=== PATIENT | female | born 1950 | race Caucasian/White ===

== ENCOUNTER → 2017-03-23 | Outpatient (CLI) | payer MEDICARE, OTHER ==
--- NOTE | 2017-03-23 14:58 | Diagnostic Imaging Report ---
EXAM: VENTILATION PERFUSION LUNG SCAN INDICATION: SOB COMPARISON: None DISCUSSION: Xenon-133 gas 20 mCi was administered via inhalation. Dynamic images of the lungs in the posterior projection were obtained through single breath and washout phases. Distribution of tracer activity is mildly irregular throughout the lungs. Washout is diffusely delayed with diffuse air trapping in both lungs. Perfusion images of the lungs in multiple projections were obtained following intravenous administration of 6.3 mCi of Tc-99m MAA. Distribution of tracer is irregular throughout the lungs. There are no segmental perfusion defects of any size. The contours of the lungs are well demarcated. The cardiac silhouette is unremarkable. IMPRESSION: 1. Scan findings represent a VERY LOW probability for acute pulmonary embolic disease based on the PIOPED II criteria. 2. Scan findings are compatible with diffuse parenchymal and/or obstructive lung disease. Signed by: Dr. Magda Gutiérrez M.D. on 03/23/2017 2:55 PM
--- NOTE | 2017-03-23 17:47 | Diagnostic Imaging Report ---
PROCEDURE: CT CHEST WITHOUT CONTRAST CT scan of the chest WITHOUT intravenous contrast, using standard protocol. TECHNIQUE: The chest was scanned utilizing a multidetector helical scanner from the apex to the level of the adrenal glands. No IV contrast was administered due to decreased renal function. Coronal and sagittal multiplanar reformations were obtained. COMPARISON: None. INDICATIONS: RIGHT SIDE PAIN, SOB, HX OF PNEUMONIA, PE FINDINGS: Lines/tubes: None. Lungs and Airways: 2.5 x 2.6 x 2.9 cm, somewhat wedge-shaped focal consolidation in the anterolateral lingula against the left epicardial fat pad (series 3, image 66, and sagittal image 93), with mild irregular/spiculated appearance. 6 mm polygonal shaped nodule in the right lower lobe adjacent to the right major fissure (series 3, image 62). 3 mm nodule in the right lower lobe (series 3, image 81). 2 mm groundglass nodule in the left lower lobe (series 3, image 64). No consolidation, or masses. Mild central bronchial wall thickening in the right middle lobe and bilateral lower lobes. Airways are clear, without endobronchial lesions. Pleura: No effusion, or pneumothorax. Heart and mediastinum: Thyroid is unremarkable. Heart size is normal. Trace pericardial effusion. Atherosclerotic calcification of the coronary arteries, aortic valves and thoracic aortic arch. Aorta is non-aneurysmal. Main pulmonary artery is normal in caliber. Lymph nodes: No mediastinal, hilar, or axillary adenopathy. Calcified mediastinal and right hilar lymph nodes are noted. Abdomen: Limited non-enhanced views of the upper abdomen show no abnormality within the visualized liver, spleen. The adrenal glands are unremarkable. Bones: No aggressive lytic lesions. Degenerative disc changes in the thoracic spine. Soft tissues are unremarkable. IMPRESSION: 1. 2.9 cm wedge-shaped focal consolidation in the anterolateral lingula against the left epicardial fat pad likely represents focal atelectasis/confluent scarring. Bronchogenic neoplasm is a less likely consideration, however, may be considered if this is a high risk patient. 2. Indeterminate 2-3 mm pulmonary nodules, as described. 3. Mild central bronchial wall thickening in the right middle lobe and bilateral lower lobes likely reflect sequela of chronic bronchitis. Kei Kaufman M.D. Dictated by: Kei Kaufman M.D. on 03/23/2017 at 17:56 Electronically approved by: Kei Kaufman M.D. on 03/23/2017 at 17:56
== END ==
LOC: NM 11:38
PROVIDERS: ATTEND Internal Medicine Critical Care Medicine
DX: R07.9 Chest pain, unspecified (principal)
CPT/HCPCS: 71250; 78582; A9540; A9558

== ENCOUNTER → 2018-03-19 | Outpatient (CLI) | payer MEDICARE, OTHER ==
--- NOTE | 2018-03-19 13:36 | Diagnostic Imaging Report ---
EXAMINATION: CHEST 2 VIEWS INDICATION: Low back pain. COMPARISON: None FINDINGS: TUBES and LINES: None. LUNGS: Lungs are moderately inflated. Focal opacity projects over the left lower lung with volume loss. The right lung is clear. PLEURA: No pleural effusion or pneumothorax. HEART AND MEDIASTINUM: The cardiomediastinal silhouette is unremarkable. BONES AND SOFT TISSUES: Irregularity of the right lateral eighth and ninth ribs likely represent subacute/healing fractures. Mild degenerative disc changes of the thoracic spine without evidence of vertebral body height loss. UPPER ABDOMEN: No free air under the diaphragm. Surgical clips project over the abdomen. IMPRESSION: Focal opacity projecting over the left lower lung with associated volume loss could represent atelectasis. However underlying lung nodule is not excluded. Chest CT or short interval follow-up chest radiograph is suggested for further evaluation. Likely subacute fractures involving the right lateral eighth and ninth ribs. Mild degenerative disc changes of the thoracic spine without evidence of vertebral body height loss. Signed by: Dr. Kim Smith MD on 03/19/2018 1:32 PM
--- NOTE | 2018-03-19 13:40 | Diagnostic Imaging Report ---
EXAM: Lumbar spine radiographs-5 views INDICATION: Low back pain COMPARISON: None FINDINGS: BONES: There is minimal retrolisthesis of L1 on L2 and L2 on L3. No acute displaced fractures. Vertebral body heights are preserved. DISCS: Mild degenerative disc changes, most pronounced in the lower thoracic spine and L5-S1. Mild facet degenerative changes, most pronounced in the lower lumbar spine. JOINTS: The facet joints and sacroiliac joints are unremarkable. OTHER: Status post cholecystectomy. High density calcification projects over the right upper abdomen/right lower hemithorax and may be in the overlying soft tissues. Atherosclerotic calcifications are noted. IMPRESSION: No acute radiographic abnormality. Mild degenerative disc and facet degenerative changes in the lower lumbar spine. Signed by: Dr. Kim Smith MD on 03/19/2018 1:37 PM
== END ==
LOC: RAD 12:42
PROVIDERS: ATTEND Internal Medicine
DX: M54.5 Low back pain (principal); M51.36 Other intervertebral disc degeneration, lumbar region
CPT/HCPCS: 71046; 72110

== ENCOUNTER → 2018-04-09 | Outpatient (CLI) | payer MEDICARE, OTHER ==
--- NOTE | 2018-04-09 11:15 | Diagnostic Imaging Report ---
EXAMINATION: PA and lateral views of the chest. COMPARISON: September 07, 2018 CLINICAL HISTORY: Pneumonia, follow-up DISCUSSION: Lines/tubes: None. Lungs: Stable opacity adjacent to the left heart border. Could reflect pericardial fat. Right lung is clear. Pleura: No pleural effusion or pneumothorax. Heart and mediastinum: The cardiomediastinal silhouette is normal. Bones and soft tissues: Stable prior right-sided rib fractures. IMPRESSION: Stable opacity adjacent to the left heart border. Signed by: Dr. Canelo Uribe M.D. on 04/09/2018 11:12 AM
== END ==
LOC: RAD 10:22
PROVIDERS: ATTEND Internal Medicine
DX: J15.9 Unspecified bacterial pneumonia (principal)
CPT/HCPCS: 71046

== ENCOUNTER → 2018-12-04 | Outpatient (CLI) | payer MEDICARE, OTHER ==
--- NOTE | 2018-12-04 15:00 | Diagnostic Imaging Report ---
EXAMINATION: CHEST 2 VIEWS INDICATION: Shortness of breath COMPARISON: Multiple prior chest radiographs, most recently of 04/09/2018 FINDINGS: LINES/TUBES:None LUNGS:The lungs are well-inflated. Unchanged left basilar opacity partially silhouetting the left hemidiaphragm and left heart border. Mild right basilar subsegmental atelectasis. PLEURA:No pleural effusion or pneumothorax. MEDIASTINUM:The cardiomediastinal silhouette appears unchanged in size and shape. Atherosclerotic calcifications of the thoracic aorta. BONES/SOFT TISSUES:No acute osseous injury. ABDOMEN:No free air under the diaphragm. Status post cholecystectomy. IMPRESSION: Unchanged left basilar opacity partially silhouetting the left heart border and left hemidiaphragm. This may represent prominent pericardial fat or less likely a pulmonary parenchymal lesion. No new focal consolidation or pulmonary edema. Signed by: Vicki Mendiola MD on 12/04/2018 2:57 PM
== END ==
LOC: RAD 13:35
PROVIDERS: ATTEND Internal Medicine
DX: J44.9 Chronic obstructive pulmonary disease, unspecified (principal); R06.00 Dyspnea, unspecified
CPT/HCPCS: 71046

== ENCOUNTER → 2019-01-09 | Outpatient (CLI) | payer MEDICARE, OTHER | LOC: RAD 12:32 | PROVIDERS: ATTEND Internal Medicine | DX: I50.32 Chronic diastolic (congestive) heart failure (principal) | CPT/HCPCS: 93306 ==

== ENCOUNTER → 2019-07-23 | Outpatient (CLI) | payer MEDICARE, OTHER ==
--- NOTE | 2019-07-23 14:19 | Diagnostic Imaging Report ---
EXAM: CT Chest WITHOUT intravenous contrast 07/23/2019 10:30 AM INDICATION: Pulmonary nodule COMPARISON: Chest radiograph 12/04/2018 TECHNIQUE: Chest was scanned utilizing a multidetector helical scanner from the lung apex through the level of the adrenal glands without administration of IV contrast. Coronal and sagittal reformations were obtained. Routine protocol was performed. IV CONTRAST: None RADIATION DOSE: Total DLP: 495 mGy*cm. Dose modulation, iterative reconstruction, and/or weight based adjustment of the mA/kV was utilized to reduce the radiation dose to as low as reasonably achievable. COMPLICATIONS: None FINDINGS: LINES/ TUBES: None. LUNGS AND AIRWAYS: The central airways are patent. There is a 3.6 x 2.9 cm mass at the lingula which corresponds with the opacity seen on prior chest radiographs. PLEURA: The pleural spaces are clear. HEART AND MEDIASTINUM: Partially visualized thyroid gland appears unremarkable. No supraclavicular, axillary, mediastinal, or hilar lymphadenopathy. The heart is not enlarged. No pericardial effusion.. Atherosclerotic calcifications involve the thoracic aorta and coronary arteries. UPPER ABDOMEN: Status post cholecystectomy. No acute findings. BONES: No acute osseous injury. No suspicious lytic or blastic lesions. Old healed right lateral rib fractures. SOFT TISSUES: Unremarkable. IMPRESSION: 3.6 x 2.9 cm lingular mass corresponds with the opacity seen on prior chest radiographs. Further evaluation is recommended with PET/CT and/or percutaneous tissue sampling. Signed by: Vicki Mendiola MD on 07/23/2019 2:15 PM
== END ==
LOC: CT 09:56
PROVIDERS: ATTEND Internal Medicine Critical Care Medicine
DX: R91.8 Other nonspecific abnormal finding of lung field (principal)
CPT/HCPCS: 71250

== ENCOUNTER → 2019-08-14 | Outpatient (CLI) | payer MEDICARE, OTHER ==
[~2019-08-14] MED LIST: FENTANYL CITRATE/PF 100MCG/2 ML INJ ONE; MIDAZOLAM HCL 2 MG/2 ML VIAL ONE
[2019-08-14 08:30] LABS: HEMOGLOBIN 11.1 g/dL (12.0-16.0)
[2019-08-14 08:35] LABS: INR 1.06; PROTHROMBIN TIME 14.5 seconds (11.9-14.5)
[2019-08-14 08:36] LABS: PARTIAL THROMBOPLASTIN TIME 28.8 seconds (23.8-35.5)
--- NOTE | 2019-08-14 10:28 | Diagnostic Imaging Report ---
PROCEDURE: CT-guided lung biopsy Procedural Personnel Attending physician(s): Vicki Mendiola MD Fellow physician(s): None Resident physician(s): None Advanced practice provider(s): None Pre-procedure diagnosis: Lingular lung mass Post-procedure diagnosis: Same Indication: Histopathologic diagnosis Previous biopsy of same target (QCDR): No Additional clinical history: None Complications: No immediate complications. IMPRESSION: CT-guided biopsy of lingular mass. Plan: Specimen(s) sent for evaluation. PROCEDURE SUMMARY: - Percutaneous CT-guided lingular mass lung biopsy - Additional procedure(s): None PROCEDURE DETAILS: Pre-procedure Reference imaging for biopsy target: Chest CT 07/23/2019 Consent: Informed consent for the procedure including risks, benefits and alternatives was obtained and time-out was performed prior to the procedure. Preparation: The site was prepared and draped using maximal sterile barrier technique including cutaneous antisepsis. Anesthesia/sedation Level of anesthesia/sedation: Moderate sedation (conscious sedation) 1mg Versed, 50mcg Fentanyl Anesthesia/sedation administered by: Independent trained observer under attending supervision with continuous monitoring of the patient?s level of consciousness and physiologic status Total intra-service sedation time (minutes): 30 Imaging prior to biopsy The patient was positioned . Initial imaging was performed using . Biopsy target: - Maximal diameter (cm): 3.5 - Location: Lingula Other findings: None Biopsy Local anesthesia was administered. Under CT guidance, the biopsy needle was advanced to the target and biopsy was performed. Coaxial needle: 17 gauge Core needle biopsy device: [employer] Core needle size: 18 gauge Number of core specimens: 3 Fine needle aspiration device: Chiba Fine needle size: 22g Number of FNA specimens: 3 On-site biopsy touch preparation: Yes Additional sampling recommendations: None Needle removal The biopsy needle was removed and a sterile dressing was applied. Tract embolization: None Imaging following biopsy Immediate post-biopsy imaging was performed using noncontrast CT. Post-biopsy imaging findings: Small postprocedural pneumomediastinum. Patient remains asymptomatic. Contrast Contrast agent: None Contrast volume (mL): [address] dose length product (mGy-cm): 2224 Additional Details Additional description of procedure: None Equipment details: None Specimens removed: Biopsy samples as detailed above Estimated blood loss (mL): Less than 10 Standardized report: [id number] Attestation Signer name: Vicki Mendiola MD I attest that I was present for the entire procedure. I reviewed the stored images and agree with the report as written. Signed by: Vicki Mendiola MD on 08/14/2019 10:24 AM
--- NOTE | 2019-08-14 11:28 | Diagnostic Imaging Report ---
EXAMINATION: CHEST SINGLE (PORTABLE) INDICATION: Postprocedural COMPARISON: Chest radiograph 12/04/2018 FINDINGS: LINES/TUBES:None LUNGS:The lungs are well-inflated. Lingular opacity corresponds with known lingular lesion and post biopsy changes. PLEURA:No pleural effusion or pneumothorax. MEDIASTINUM:The cardiomediastinal silhouette appears normal in size and shape. BONES/SOFT TISSUES:No acute osseous injury. ABDOMEN:No free air under the diaphragm. IMPRESSION: No pneumothorax status post lingular lung biopsy. Signed by: Vicki Mendiola MD on 08/14/2019 11:24 AM
== END ==
LOC: CT 07:55
PROVIDERS: ATTEND Internal Medicine Critical Care Medicine
DX: R91.8 Other nonspecific abnormal finding of lung field (principal); Z11.59 Encounter for screening for other viral diseases
CPT/HCPCS: 10009; 32405; 36415; 71045; 85014; 85049; 85610; 85730; 87635; 88112; 88305; 99152; J2250; J3010

== ENCOUNTER 2020-05-25 12:05 | Inpatient (IN) | payer MEDICARE, OTHER ==
[~2020-05-25] VITALS: Ht 167.6 cm; Wt 69.9 kg
[~2020-05-25 12:05] MED LIST changes: +ALLOPURINOL100 MG PO; +ATORVASTATIN CA10 MG PO; +CALCITRIOL0.25 MCG PO; +DIAZEPAM10 MG PO; -FENTANYL CITRATE/PF 100MCG/2 ML INJ ONE; +FUROSEMIDE40 MG PO; +LEVOTHYROXINE50 MCG PO; +LOSARTAN POTASS25 MG PO; -MIDAZOLAM HCL 2 MG/2 ML VIAL ONE; +NORCO 7.5-3251 EACH PO; +SERTRALINE HCL50 MG PO; +VITAMIN B-121000 MCG PO
[2020-05-25 14:45] LABS: BASOPHILS # (AUTO) 0.1 (0.0-0.1); EOSINOPHILS # (AUTO) 0.1 (0.0-0.4); EOSINOPHILS % 1.1 % (0.0-6.0); HEMOGLOBIN 11.2 g/dL (12.0-16.0); LYMPHOCYTES # (AUTO) 1.9 (1.0-3.2); LYMPHOCYTES % 23.4 % (18.0-39.1); MEAN CORPUSCULAR HEMOGLOBIN 30.1 pg (28-32); MEAN CORPUSCULAR VOLUME 94.1 fL (81-99); MONOCYTES # (AUTO) 0.5 (0.2-0.8); MONOCYTES % 6.1 % (4.4-11.3); NEUTROPHILS # (AUTO) 5.3 (2.1-6.9); NEUTROPHILS % 67.8 % (38.7-80.0); PLATELET COUNT 210 x10e3/uL (140-360); RED BLOOD COUNT 3.72 x10e6/uL (3.6-5.1); RED CELL DISTRIBUTION WIDTH 15.9 % (11.7-14.4)
[2020-05-25 14:58] LABS: ALBUMIN 3.4 g/dL (3.5-5.0); ALBUMIN/GLOBULIN RATIO 0.8 (0.8-2.0); ANION GAP 18.4 mmol/L (8-16); CALCIUM 10.3 mg/dL (8.4-10.2); CREATININE, SERUM 3.46 mg/dL (0.57-1.11); POTASSIUM 3.4 mmol/L (3.5-5.1)
[2020-05-25] MEDS ORDERED: NON-FORMULARY MEDICATION (Diazepam 10 MG) PO PRN (15:15)
[2020-05-25] MEDS ORDERED: HYDROCODONE/APAP 7.5MG-325MG 1 EA TAB PO PRN (15:15)
[2020-05-25] MEDS ORDERED: DIAZEPAM 5 MG TAB PO PRN (15:45)
[2020-05-25 15:48] LABS: CLARITY,URINE SL CLOUDY (CLEAR); COLOR,URINE AMBER (YELLOW); KETONES,URINE NEGATIVE (NEGATIVE); LEUKOCYTE ESTERASE ,URINE NEGATIVE (NEGATIVE); NITRITE,URINE NEGATIVE (NEGATIVE); PROTEIN,URINE DIPSTICK 1+ (NEGATIVE); URINE UROBILINOGEN 0.2 mg/dL (0.2 - 1)
[2020-05-25 16:00] LABS: BACTERIA,URINE MODERATE /HPF; EPITHELIAL CELLS,URINE FEW /LPF; RENAL EPITHELIAL CELLS,URINE FEW
[2020-05-25] MEDS ORDERED: CEFTRIAXONE SOD 1 GM/50 ML BAG IV SCH (16:30)
[2020-05-25] MEDS ORDERED: POTASSIUM CHLORIDE 10MEQ EA PO ONE ×2 (16:30→18:30)
[2020-05-25] MEDS ORDERED: SODIUM CHLORIDE 0.9% 250ML 250 ML ONE (16:46)
[2020-05-25] MEDS ORDERED: CEFTRIAXONE SOD 1 GM in SODIUM CHLORIDE 0.9% 50ML 50 ML IV SCH (17:00)
[2020-05-25] MEDS: SODIUM CHLORIDE 0.9% 1000ML 1,000 ML IV SCH (17:18)
[2020-05-25] MEDS ORDERED: IBUPROFEN 600 MG TAB PO NR (18:45)
[2020-05-25 19:40] VITALS: BP 92/64
[2020-05-25 20:30] VITALS: BP 92/64
[2020-05-25 21:00] VITALS: BP 92/64
[2020-05-25] MEDS: ATORVASTATIN 10 MG TAB PO SCH (22:15)
[2020-05-25] MEDS: ALLOPURINOL 100 MG TAB PO SCH (22:15)
[2020-05-26] VITALS (8 sets, daily range): BP systolic 85–102; BP diastolic 53–66
[2020-05-26] MEDS: SODIUM CHLORIDE 0.9% 1000ML 1,000 ML IV SCH ×4 (01:02→20:45)
[2020-05-26] MEDS ORDERED: METOPROLOL SUCC25 MG PO (01:22)
[2020-05-26] MEDS ORDERED: QUESTRAN PACKET4 GM PO (01:22)
[2020-05-26 05:10] LABS: BASOPHILS % 0.8 % (0.0-1.0); EOSINOPHILS # (AUTO) 0.1 (0.0-0.4); EOSINOPHILS % 1.5 % (0.0-6.0); HEMATOCRIT 28.5 % (34.2-44.1); HEMOGLOBIN 9.1 g/dL (12.0-16.0); LYMPHOCYTES # (AUTO) 1.4 (1.0-3.2); LYMPHOCYTES % 26.2 % (18.0-39.1); MEAN CORPUSCULAR HEMOGLOBIN 30.6 pg (28-32); MEAN CORPUSCULAR HGB CONC 31.9 g/dL (31-35); MONOCYTES # (AUTO) 0.4 (0.2-0.8); MONOCYTES % 7.3 % (4.4-11.3); NEUTROPHILS # (AUTO) 3.3 (2.1-6.9); NEUTROPHILS % 63.8 % (38.7-80.0); PLATELET COUNT 151 x10e3/uL (140-360); RED BLOOD COUNT 2.97 x10e6/uL (3.6-5.1); RED CELL DISTRIBUTION WIDTH 15.8 % (11.7-14.4)
[2020-05-26 05:29] LABS: ALBUMIN 2.6 g/dL (3.5-5.0); ALBUMIN/GLOBULIN RATIO 0.8 (0.8-2.0); CALCIUM 8.7 mg/dL (8.4-10.2); CREATININE, SERUM 2.77 mg/dL (0.57-1.11)
[2020-05-26] MEDS: LEVOTHYROXINE SODIUM 50 MCG TAB PO SCH (06:03)
[2020-05-26] MEDS ORDERED: SODIUM CHLORIDE 0.9% 1000ML 250 ML IV SCH (07:00)
[2020-05-26] MEDS ORDERED: SODIUM CHLORIDE 0.9% 250ML 250 ML IV ONE (07:20)
[2020-05-26 07:32] LABS: CHOL/HDL RATIO 3.1 (3.0-3.6)
[2020-05-26] MEDS: CEFTRIAXONE SOD 1 GM in SODIUM CHLORIDE 0.9% 50ML 50 ML IV SCH ×2 (07:38→20:10)
[2020-05-26] MEDS: CALCITRIOL 0.25 MCG CAP PO SCH (08:59)
[2020-05-26] MEDS: CYANOCOBALAMIN 1,000 MCG TAB PO SCH (08:59)
[2020-05-26] MEDS: SERTRALINE HCL 50 MG TAB PO SCH (08:59)
[2020-05-26] MEDS ORDERED: FUROSEMIDE 20 MG TAB PO SCH (09:00)
[2020-05-26] MEDS ORDERED: LOSARTAN POTASSIUM 25 MG TAB PO SCH (09:00)
[2020-05-26] MEDS ORDERED: SODIUM CHLORIDE 0.9% 500ML 500 ML IV ONE (18:45)
[2020-05-26] MEDS: ALLOPURINOL 100 MG TAB PO SCH (20:10)
[2020-05-26] MEDS: ATORVASTATIN 10 MG TAB PO SCH (20:10)
[2020-05-27] VITALS (9 sets, daily range): BP systolic 95–116; BP diastolic 60–90
[2020-05-27 05:06] LABS: BASOPHILS % 0.6 % (0.0-1.0); EOSINOPHILS # (AUTO) 0.1 (0.0-0.4); EOSINOPHILS % 1.9 % (0.0-6.0); HEMATOCRIT 27.5 % (34.2-44.1); HEMOGLOBIN 8.6 g/dL (12.0-16.0); LYMPHOCYTES # (AUTO) 1.3 (1.0-3.2); LYMPHOCYTES % 27.2 % (18.0-39.1); MEAN CORPUSCULAR HEMOGLOBIN 30.2 pg (28-32); MEAN CORPUSCULAR HGB CONC 31.3 g/dL (31-35); MEAN CORPUSCULAR VOLUME 96.5 fL (81-99); MONOCYTES # (AUTO) 0.3 (0.2-0.8); MONOCYTES % 6.7 % (4.4-11.3); NEUTROPHILS # (AUTO) 2.9 (2.1-6.9); NEUTROPHILS % 63.2 % (38.7-80.0); PLATELET COUNT 141 x10e3/uL (140-360); RED BLOOD COUNT 2.85 x10e6/uL (3.6-5.1); RED CELL DISTRIBUTION WIDTH 15.9 % (11.7-14.4)
[2020-05-27 05:32] LABS: CREATININE, SERUM 2.23 mg/dL (0.57-1.11)
[2020-05-27] MEDS: LEVOTHYROXINE SODIUM 50 MCG TAB PO SCH (06:30)
[2020-05-27 08:12] LABS: FERRITIN 514.14 ng/mL (4.63-204.00)
[2020-05-27] MEDS: CYANOCOBALAMIN 1,000 MCG TAB PO SCH (09:00)
[2020-05-27] MEDS: SERTRALINE HCL 50 MG TAB PO SCH (09:00)
[2020-05-27] MEDS ORDERED: SODIUM BICARBONATE 650 MG TAB PO SCH (09:00)
[2020-05-27] MEDS: CALCITRIOL 0.25 MCG CAP PO SCH (09:00)
[2020-05-27] MEDS: SODIUM CHLORIDE 0.9% 1000ML 1,000 ML IV SCH ×2 (09:00→17:49)
[2020-05-27] MEDS: CEFTRIAXONE SOD 1 GM in SODIUM CHLORIDE 0.9% 50ML 50 ML IV SCH ×2 (09:00→20:45)
[2020-05-27] MEDS: ACETYLCYSTEINE 200 MG/ML 4ML VIAL PO SCH ×2 (09:22→21:31)
[2020-05-27] MEDS: SODIUM BICARBONATE 650 MG TAB PO SCH (17:46)
[2020-05-27] MEDS: ATORVASTATIN 10 MG TAB PO SCH (21:32)
[2020-05-27] MEDS: ALLOPURINOL 100 MG TAB PO SCH (21:32)
[2020-05-28] VITALS (12 sets, daily range): BP systolic 102–117; BP diastolic 65–76
[2020-05-28] MEDS: SODIUM CHLORIDE 0.9% 1000ML 1,000 ML IV SCH ×3 (00:13→23:00)
[2020-05-28] MEDS: LEVOTHYROXINE SODIUM 50 MCG TAB PO SCH (02:02)
[2020-05-28 05:58] LABS: BASOPHILS % 0.8 % (0.0-1.0); EOSINOPHILS # (AUTO) 0.1 (0.0-0.4); EOSINOPHILS % 2.5 % (0.0-6.0); HEMATOCRIT 31.4 % (34.2-44.1); HEMOGLOBIN 9.8 g/dL (12.0-16.0); LYMPHOCYTES # (AUTO) 1.2 (1.0-3.2); LYMPHOCYTES % 24.3 % (18.0-39.1); MEAN CORPUSCULAR HGB CONC 31.2 g/dL (31-35); MEAN CORPUSCULAR VOLUME 99.4 fL (81-99); MONOCYTES # (AUTO) 0.3 (0.2-0.8); MONOCYTES % 5.4 % (4.4-11.3); NEUTROPHILS # (AUTO) 3.2 (2.1-6.9); NEUTROPHILS % 66.6 % (38.7-80.0); PLATELET COUNT 146 x10e3/uL (140-360); RED BLOOD COUNT 3.16 x10e6/uL (3.6-5.1); RED CELL DISTRIBUTION WIDTH 16.2 % (11.7-14.4)
[2020-05-28 06:07] LABS: ANION GAP 14.8 mmol/L (8-16); CALCIUM 8.2 mg/dL (8.4-10.2); CREATININE, SERUM 1.92 mg/dL (0.57-1.11); POTASSIUM 3.8 mmol/L (3.5-5.1)
[2020-05-28] MEDS ORDERED: VERAPAMIL HCL 2.5 MG/ML 2 ML VIAL ONE (07:33)
[2020-05-28] MEDS ORDERED: MIDAZOLAM HCL 2 MG/2 ML VIAL ONE (07:33)
[2020-05-28] MEDS ORDERED: HEPARIN SOD (PORCINE) 1000 UNIT/ML 30ML ONE (07:33)
[2020-05-28] MEDS ORDERED: HEPARIN SOD/SOD CHLORIDE 2,000 ML ONE (07:34)
[2020-05-28] MEDS ORDERED: LIDOCAINE HCL 2% LOCAL 20 ML VIAL ONE (07:34)
[2020-05-28] MEDS ORDERED: FENTANYL CITRATE/PF 100MCG/2 ML INJ ONE (07:34)
[2020-05-28] MEDS ORDERED: IOPAMIDOL 370 MG/ML 200 ML INFUS..BTL INJ ONE (07:34)
[2020-05-28] MEDS ORDERED: SODIUM CHLORIDE 0.9% 1000ML 1,000 ML ONE (07:35)
[2020-05-28] MEDS ORDERED: NITROGLYCERIN/D5W 200 MCG/ML 250 ML ONE (07:35)
[2020-05-28] MEDS: ACETYLCYSTEINE 200 MG/ML 4ML VIAL PO SCH ×2 (09:00→20:26)
[2020-05-28] MEDS: CEFTRIAXONE SOD 1 GM in SODIUM CHLORIDE 0.9% 50ML 50 ML IV SCH ×2 (10:00→20:25)
[2020-05-28] MEDS: SODIUM BICARBONATE 650 MG TAB PO SCH ×2 (10:06→17:00)
[2020-05-28] MEDS: CYANOCOBALAMIN 1,000 MCG TAB PO SCH (10:07)
[2020-05-28] MEDS: SERTRALINE HCL 50 MG TAB PO SCH (10:07)
[2020-05-28] MEDS: CALCITRIOL 0.25 MCG CAP PO SCH (10:07)
[2020-05-28] MEDS: ATORVASTATIN 10 MG TAB PO SCH (20:27)
[2020-05-28] MEDS: ALLOPURINOL 100 MG TAB PO SCH (20:27)
[2020-05-29 00:15] VITALS: BP 103/69
[2020-05-29] MEDS: SODIUM CHLORIDE 0.9% 1000ML 1,000 ML IV SCH (03:00)
[2020-05-29 04:00] VITALS: BP 94/66
[2020-05-29] MEDS: LEVOTHYROXINE SODIUM 50 MCG TAB PO SCH (05:45)
[2020-05-29 07:31] VITALS: BP 94/66
[2020-05-29 07:35] LABS: BASOPHILS % 0.9 % (0.0-1.0); EOSINOPHILS # (AUTO) 0.1 (0.0-0.4); EOSINOPHILS % 2.3 % (0.0-6.0); HEMOGLOBIN 9.5 g/dL (12.0-16.0); LYMPHOCYTES # (AUTO) 1.2 (1.0-3.2); LYMPHOCYTES % 24.7 % (18.0-39.1); MEAN CORPUSCULAR HEMOGLOBIN 30.3 pg (28-32); MEAN CORPUSCULAR HGB CONC 30.6 g/dL (31-35); MEAN CORPUSCULAR VOLUME 98.7 fL (81-99); MONOCYTES # (AUTO) 0.3 (0.2-0.8); MONOCYTES % 6.2 % (4.4-11.3); NEUTROPHILS # (AUTO) 3.1 (2.1-6.9); NEUTROPHILS % 65.5 % (38.7-80.0); PLATELET COUNT 131 x10e3/uL (140-360); RED BLOOD COUNT 3.14 x10e6/uL (3.6-5.1); RED CELL DISTRIBUTION WIDTH 16.6 % (11.7-14.4)
[2020-05-29 07:56] LABS: ALBUMIN 2.4 g/dL (3.5-5.0); ALBUMIN/GLOBULIN RATIO 0.8 (0.8-2.0); ANION GAP 14.9 mmol/L (8-16); CALCIUM 7.5 mg/dL (8.4-10.2); CREATININE, SERUM 1.59 mg/dL (0.57-1.11); POTASSIUM 3.9 mmol/L (3.5-5.1)
[2020-05-29] MEDS: CYANOCOBALAMIN 1,000 MCG TAB PO SCH (10:50)
[2020-05-29] MEDS: SERTRALINE HCL 50 MG TAB PO SCH (10:50)
[2020-05-29] MEDS: SODIUM BICARBONATE 650 MG TAB PO SCH (10:50)
[2020-05-29] MEDS: CEFTRIAXONE SOD 1 GM in SODIUM CHLORIDE 0.9% 50ML 50 ML IV SCH (10:50)
[2020-05-29] MEDS: CALCITRIOL 0.25 MCG CAP PO SCH (10:50)
[2020-05-29 12:30] VITALS: BP 104/72
== END 2020-05-29 14:23 | disposition home or self-care (01) | DRG 871 ==
LOC: ER 13:26 → ERHOLD 15:12 → MED/SURG 20:30
PROVIDERS: ADMIT Internal Medicine; ATTEND Internal Medicine
PROC: 4A023N7 Measurement of Cardiac Sampling and Pressure, Left Heart, Percutaneous Approach (ICD-10-PCS; principal; 2020-05-28)
PROC: B2111ZZ Fluoroscopy of Multiple Coronary Arteries using Low Osmolar Contrast (ICD-10-PCS; 2020-05-28)
DX: A41.9 Sepsis, unspecified organism (principal); N17.0 Acute kidney failure with tubular necrosis; I13.0 Hypertensive heart and chronic kidney disease with heart failure and stage 1 through stage 4 chronic kidney disease, or unspecified chronic kidney disease; I50.32 Chronic diastolic (congestive) heart failure; E87.2 Acidosis; N18.4 Chronic kidney disease, stage 4 (severe); N39.0 Urinary tract infection, site not specified; J44.9 Chronic obstructive pulmonary disease, unspecified; Z87.891 Personal history of nicotine dependence; E66.9 Obesity, unspecified; I25.9 Chronic ischemic heart disease, unspecified; E03.9 Hypothyroidism, unspecified; E83.51 Hypocalcemia; N28.1 Cyst of kidney, acquired; E83.52 Hypercalcemia; I25.10 Atherosclerotic heart disease of native coronary artery without angina pectoris; I48.0 Paroxysmal atrial fibrillation; Z79.01 Long term (current) use of anticoagulants; R33.9 Retention of urine, unspecified; D63.8 Anemia in other chronic diseases classified elsewhere; Z20.822 Contact with and (suspected) exposure to COVID-19
CPT/HCPCS: 36415; 71045; 80048; 80053; 80061; 81001; 82607; 82728; 82948; 83540; 83605; 83880; 84443; 84466; 84484; 85025; 87040; 87086; 93005; 93306; 93458; 97139; 99152; 99285; C1887; J0696; J1644; J2001; J2250; J3010; J7030; J7050; Q9967; U0002

== ENCOUNTER 2022-12-26 12:23 | Observation (INO) | payer MEDICARE, OTHER ==
[2022-12-22 11:02] LABS: COVID 19 ANTIGEN NOT DETECTED (NEGATIVE)
[2022-12-22 11:14] LABS: BASOPHILS % 0.4 % (0.0-1.0); EOSINOPHILS # (AUTO) 0.2 (0.0-0.4); EOSINOPHILS % 2.4 % (0.0-6.0); HEMATOCRIT 34.6 % (34.2-44.1); LYMPHOCYTES # (AUTO) 1.3 (1.0-3.2); LYMPHOCYTES % 18.7 % (18.0-39.1); MEAN CORPUSCULAR HEMOGLOBIN 30.4 pg (28-32); MEAN CORPUSCULAR HGB CONC 31.8 g/dL (31-35); MEAN CORPUSCULAR VOLUME 95.6 fL (81-99); MONOCYTES # (AUTO) 0.2 (0.2-0.8); MONOCYTES % 2.7 % (4.4-11.3); NEUTROPHILS # (AUTO) 5.3 (2.1-6.9); NEUTROPHILS % 75.2 % (38.7-80.0); PLATELET COUNT 105 x10e3/uL (140-360); RED BLOOD COUNT 3.62 x10e6/uL (3.6-5.1); RED CELL DISTRIBUTION WIDTH 14.9 % (11.7-14.4); WHITE BLOOD COUNT 7.06 x10e3/uL (4.8-10.8)
[2022-12-22 11:16] LABS: ALANINE AMINOTRANSFERASE 13 IU/L (0-55); ALBUMIN 3.2 g/dL (3.5-5.0); ALBUMIN/GLOBULIN RATIO 0.8 (0.8-2.0); ALKALINE PHOSPHATASE 143 IU/L (40-150); ANION GAP 15.2 mmol/L (8-16); BILIRUBIN,TOTAL 0.4 mg/dL (0.2-1.2); BLOOD UREA NITROGEN 29 mg/dL (7-26); BUN/CREATININE RATIO 11 (6-25); CALCIUM 9.4 mg/dL (8.4-10.2); CARBON DIOXIDE 25 mmol/L (22-29); CHLORIDE 104 mmol/L (98-107); CHOLESTEROL 126 MD/DL (0-199); CREATININE, SERUM 2.61 mg/dL (0.57-1.11); EST GLOMERULAR FILTRATION RATE 19 ML/MIN (>=60); GLUCOSE 215 mg/dL (74-118); HDL CHOLESTEROL 42 MG/DL (40-60); LDL CHOLESTEROL 57 MG/DL (60-130); POTASSIUM 4.2 mmol/L (3.5-5.1); SODIUM 140 mmol/L (136-145); TOTAL PROTEIN 7.4 g/dL (6.5-8.1); TRIGLYCERIDES 135 MG/DL (0-149)
[2022-12-26] VITALS (19 sets, daily range): BP systolic 105–144; BP diastolic 39–94; PULSE 52–73; RESP 12–20; TEMP 97.3–97.9; O2SAT 92–100
[~2022-12-26] VITALS: Ht 167.6 cm; Wt 94.1 kg
[~2022-12-26 12:23] MED LIST changes: +BIOTIN10 MG; +CENTRUM ADULTS1 EACH PO; +DIAZEPAM5 MG PO; +FLOMAX0.4 MG PO; +HYDROCODON-ACE1 EA12; +HYDROXYZINE HCL25 MG PO; +METHOCARBAMOL500 MG; +METOPROLOL SUCC25 MG PO; +QUESTRAN PACKET4 GM PO; +VITAMIN D325 MCG; +XARELTO15 MG
[2022-12-26] MEDS ORDERED: ALPRAZOLAM 0.5 MG TAB ONE (13:46)
[2022-12-26] MEDS ORDERED: DIPHENHYDRAMINE HCL 25 MG CAP ONE (13:46)
[2022-12-26] MEDS ORDERED: METOPROLOL SUCC25 MG PO (14:18)
[2022-12-26] MEDS ORDERED: NITROGLYCERIN/D5W 200 MCG/ML 250 ML ONE (15:39)
[2022-12-26] MEDS ORDERED: SODIUM CHLORIDE 0.9% 1000ML 1,000 ML ONE (15:39)
[2022-12-26] MEDS ORDERED: HEPARIN SOD/SOD CHLORIDE 2,000 ML ONE (15:39)
[2022-12-26] MEDS ORDERED: LIDOCAINE HCL 2% LOCAL 20 ML VIAL ONE (15:39)
[2022-12-26] MEDS ORDERED: HEPARIN SOD (PORCINE) 1000 UNIT/ML 30ML ONE (15:39)
[2022-12-26] MEDS ORDERED: IOPAMIDOL 370 MG/ML 100 ML INFUS..BTL INJ ONE (15:39)
[2022-12-26] MEDS ORDERED: BIVALRIUDIN 250 MG/VIAL VIAL IV ONE (15:40)
[2022-12-26] MEDS ORDERED: FENTANYL CITRATE/PF 100MCG/2 ML INJ ONE (15:47)
[2022-12-26] MEDS ORDERED: MIDAZOLAM HCL 2 MG/2 ML VIAL ONE (15:47)
[2022-12-26] MEDS ORDERED: VERAPAMIL HCL 2.5 MG/ML 2 ML VIAL ONE (15:47)
[2022-12-26] MEDS ORDERED: ASPIRIN 325 MG TAB ONE (16:00)
[2022-12-26] MEDS ORDERED: PRASUGREL 10 MG TAB ONE (16:00)
[2022-12-26] MEDS ORDERED: ONDANSETRON HCL INJ 2MG/ML 2ML 2 MG/ML VIAL IV PRN (16:30)
[2022-12-26] MEDS ORDERED: HYDROCODONE/APAP 7.5MG-325MG 1 EA TAB PO SCH (16:30)
[2022-12-26] MEDS ORDERED: Morphine 2mg Syringe 2 MG/ML SYR IV PRN (16:30)
[2022-12-26] MEDS ORDERED: HYDROCODONE/APAP 5MG-325MG TAB PO PRN (16:30)
[2022-12-26] MEDS ORDERED: ALLOPURINOL 100 MG TAB PO SCH (21:00)
[2022-12-26] MEDS ORDERED: ATORVASTATIN 10 MG TAB PO SCH (21:00)
[2022-12-26] MEDS: SODIUM CHLORIDE 0.9% 1000ML 1,000 ML IV SCH (21:53)
[2022-12-27] VITALS (7 sets, daily range): BP systolic 113–126; BP diastolic 61–77; PULSE 65–74; RESP 17–20; TEMP 97–98.3; O2SAT 93–97
[2022-12-27] MEDS: SODIUM CHLORIDE 0.9% 1000ML 1,000 ML IV SCH (05:21)
[2022-12-27] MEDS ORDERED: LEVOTHYROXINE SODIUM 75 MCG TAB PO SCH (06:00)
[2022-12-27] MEDS ORDERED: CYANOCOBALAMIN 1,000 MCG TAB PO SCH (09:00)
[2022-12-27] MEDS ORDERED: HYDROXYZINE HCL 25 MG TAB PO SCH (09:00)
[2022-12-27] MEDS ORDERED: SERTRALINE HCL 50 MG TAB PO SCH (09:00)
[2022-12-27] MEDS ORDERED: TAMSULOSIN HCL 0.4 MG CAP PO SCH (09:00)
[2022-12-27] MEDS ORDERED: RIVAROXABAN 15 MG TABLET PO SCH (09:00)
[2022-12-27] MEDS ORDERED: MULTIVITAMINS/MINERALS TAB PO SCH (09:00)
[2022-12-27] MEDS ORDERED: CALCITRIOL 0.25 MCG CAP PO SCH (09:00)
[2022-12-27] MEDS ORDERED: METOPROLOL SUCCINATE 25 MG TAB XL PO SCH (09:00)
[2023-01-01] MEDS ORDERED: CELEXA20 MG PO (07:45)
[2023-01-02] MEDS ORDERED: FEROSUL325 MG PO (16:07)
[2023-01-02] MEDS ORDERED: PLAVIX75 MG PO (16:07)
[2023-01-02] MEDS ORDERED: VITAMIN C500 M2 PO (16:07)
[2023-01-02] MEDS ORDERED: ONDANSETRON ODT4 MG PO (16:07)
== END 2022-12-27 11:01 | disposition home or self-care (01) ==
LOC: CATH LAB 12:23 → INTOOBSV 18:09 → MED/SURG2 18:09
PROVIDERS: ADMIT Internal Medicine Interventional Cardiology; ATTEND Internal Medicine Interventional Cardiology
DX: I25.119 Atherosclerotic heart disease of native coronary artery with unspecified angina pectoris (principal); N18.9 Chronic kidney disease, unspecified; Z88.2 Allergy status to sulfonamides; Z11.52 Encounter for screening for COVID-19; Z01.812 Encounter for preprocedural laboratory examination; Z79.02 Long term (current) use of antithrombotics/antiplatelets; Z79.899 Other long term (current) drug therapy; Z68.33 Body mass index [BMI] 33.0-33.9, adult
CPT/HCPCS: 0223U; 36415; 76937; 80053; 80061; 83880; 85025; 94799; C1874; C1887; C1894; C9600; G0378 ×2; J1644; J2001; J2250; J3010; J3410; J7030 ×2; Q9967; 92928; 99152; J0583

== ENCOUNTER 2023-10-16 15:25 | Inpatient (IN) | payer MEDICARE, OTHER ==
[~2023-10-16] VITALS: Ht 167.6 cm; Wt 99.0 kg
[~2023-10-16 15:25] MED LIST changes: +CELEXA20 MG PO; +FEROSUL325 MG PO; +ONDANSETRON ODT4 MG PO; +PLAVIX75 MG PO; +VITAMIN C500 M2 PO
[2023-10-16] MEDS ORDERED: SODIUM CHLORIDE 0.9% 1000ML 1,000 ML ONE (15:59)
[2023-10-16 16:14] LABS: BASOPHILS % 0.2 % (0.0-1.0); EOSINOPHILS % 0.1 % (0.0-6.0); LYMPHOCYTES # (AUTO) 0.6 (1.0-3.2); LYMPHOCYTES % 4.4 % (18.0-39.1); MEAN CORPUSCULAR HEMOGLOBIN 30.1 pg (28-32); MEAN CORPUSCULAR HGB CONC 30.9 g/dL (31-35); MEAN CORPUSCULAR VOLUME 97.3 fL (81-99); MONOCYTES # (AUTO) 0.2 (0.2-0.8); MONOCYTES % 1.1 % (4.4-11.3); NEUTROPHILS # (AUTO) 13.2 (2.1-6.9); NEUTROPHILS % 93.5 % (38.7-80.0); PLATELET COUNT 181 x10e3/uL (140-360); RED BLOOD COUNT 1.86 x10e6/uL (3.6-5.1); RED CELL DISTRIBUTION WIDTH 16.2 % (11.7-14.4)
[2023-10-16 16:18] LABS: HEMATOCRIT 18.1 % (34.2-44.1); HEMOGLOBIN 5.6 g/dL (12.0-16.0)
[2023-10-16 16:19] LABS: INR 3.73; PARTIAL THROMBOPLASTIN TIME 29.7 seconds (23.8-35.5); PROTHROMBIN TIME 38.6 seconds (11.9-14.5)
[2023-10-16 16:26] LABS: ALBUMIN/GLOBULIN RATIO 0.9 (0.8-2.0); ANION GAP 20.2 mmol/L (8-16); BILIRUBIN,TOTAL 0.4 mg/dL (0.2-1.2); CALCIUM 9.2 mg/dL (8.4-10.2); CREATININE, SERUM 4.46 mg/dL (0.57-1.11); POTASSIUM 4.2 mmol/L (3.5-5.1); TOTAL PROTEIN 6.4 g/dL (6.5-8.1)
[2023-10-16] MEDS: SODIUM CHLORIDE 0.9% 250ML 250 ML IV ONE (17:32)
[2023-10-16] MEDS: PHYTONADIONE 10 MG/ML AMP SQ ONE (17:32)
[2023-10-16] MEDS ORDERED: IPRATROPIUM BROMIDE 0.02% 2.5 ML NEB NEB SCH (19:00)
[2023-10-16] MEDS ORDERED: DOCUSATE SODIUM 100 MG CAP PO PRN ×2 (19:00→22:15)
[2023-10-16] MEDS ORDERED: ACETAMINOPHEN 325 MG TAB PO PRN ×2 (19:00→22:15)
[2023-10-16] MEDS ORDERED: MELATONIN 3 MG TAB PO PRN (19:00)
[2023-10-16] MEDS ORDERED: GUAIFENESIN/DEXTROMETHORPHAN LIQD 5 ML UDC PO PRN (19:00)
[2023-10-16] MEDS ORDERED: ONDANSETRON HCL INJ 2MG/ML 2ML 2 MG/ML VIAL IV PRN (19:00)
[2023-10-16] MEDS ORDERED: HYDRALAZINE HCL 20 MG/ML VIAL IV PRN ×2 (19:00→22:15)
[2023-10-16] MEDS: IPRATROPIUM BROMIDE 0.02% 2.5 ML NEB NEB SCH (19:00)
[2023-10-16] MEDS: HUM PROTHROMBIN CPLX(PCC)4FACT 500 UNIT VIAL IV STA (19:01)
[2023-10-16] MEDS: SODIUM CHLORIDE 0.9% 1000ML 1,000 ML IV STA (19:03)
[2023-10-16] MEDS ORDERED: SODIUM CHLORIDE 0.9% 250ML 250 ML ONE (19:47)
[2023-10-16] MEDS: ALLOPURINOL 100 MG TAB PO SCH (21:00)
[2023-10-16] MEDS: ATORVASTATIN 10 MG TAB PO SCH (21:00)
[2023-10-16] MEDS ORDERED: IOPAMIDOL 370 MG/ML 100 ML INFUS..BTL INJ ONE (21:14)
[2023-10-16] MEDS ORDERED: SODIUM CHLORIDE 0.9% 0 ML ONE (21:14)
[2023-10-16] MEDS ORDERED: SIMETHICONE 80 MG CHEW PO PRN (22:15)
[2023-10-16] MEDS ORDERED: BENZONATATE 100 MG CAP PO PRN (22:15)
[2023-10-16] MEDS ORDERED: DEXTROSE 50% SYRINGE 50 ML IV PRN (22:15)
[2023-10-16] MEDS ORDERED: DIPHENHYDRAMINE HCL 25 MG CAP PO PRN (22:15)
[2023-10-16 22:21] VITALS: PULSE 93; RESP 20; TEMP 98.8
[2023-10-16 22:29] LABS: BASOPHILS % 0.2 % (0.0-1.0); EOSINOPHILS % 0.1 % (0.0-6.0); LYMPHOCYTES # (AUTO) 1.1 (1.0-3.2); LYMPHOCYTES % 9.6 % (18.0-39.1); MEAN CORPUSCULAR HEMOGLOBIN 30.6 pg (28-32); MEAN CORPUSCULAR VOLUME 95.6 fL (81-99); MONOCYTES # (AUTO) 0.3 (0.2-0.8); MONOCYTES % 2.9 % (4.4-11.3); NEUTROPHILS % 86.3 % (38.7-80.0); PLATELET COUNT 172 x10e3/uL (140-360); RED BLOOD COUNT 2.06 x10e6/uL (3.6-5.1); RED CELL DISTRIBUTION WIDTH 15.1 % (11.7-14.4); WHITE BLOOD COUNT 11.56 x10e3/uL (4.8-10.8)
[2023-10-16 22:44] LABS: HEMATOCRIT 19.7 % (34.2-44.1); HEMOGLOBIN 6.3 g/dL (12.0-16.0)
[2023-10-16] MEDS: OCTREOTIDE ACETATE 500 MCG in SODIUM CHLORIDE 0.9% 250ML 249 ML IV SCH (22:53)
[2023-10-16 23:45] VITALS: BP 107/54; PULSE 85; RESP 18; O2SAT 100
[2023-10-17] VITALS (50 sets, daily range): BP systolic 71–115; BP diastolic 38–84; PULSE 69–100; RESP 14–25; TEMP 97.8–99; O2SAT 66–100
[2023-10-17 02:48] LABS: BASOPHILS % 0.3 % (0.0-1.0); EOSINOPHILS # (AUTO) 0.1 (0.0-0.4); EOSINOPHILS % 0.4 % (0.0-6.0); LYMPHOCYTES # (AUTO) 1.3 (1.0-3.2); LYMPHOCYTES % 11.2 % (18.0-39.1); MEAN CORPUSCULAR HGB CONC 32.1 g/dL (31-35); MEAN CORPUSCULAR VOLUME 96.6 fL (81-99); MONOCYTES # (AUTO) 0.5 (0.2-0.8); MONOCYTES % 4.4 % (4.4-11.3); NEUTROPHILS # (AUTO) 9.4 (2.1-6.9); NEUTROPHILS % 82.6 % (38.7-80.0); PLATELET COUNT 174 x10e3/uL (140-360); RED BLOOD COUNT 2.03 x10e6/uL (3.6-5.1); RED CELL DISTRIBUTION WIDTH 15.1 % (11.7-14.4); WHITE BLOOD COUNT 11.43 x10e3/uL (4.8-10.8)
[2023-10-17 02:51] LABS: HEMATOCRIT 19.6 % (34.2-44.1); HEMOGLOBIN 6.3 g/dL (12.0-16.0)
[2023-10-17 03:13] LABS: HYPOCHROMASIA MODERATE; RBC MORPHOLOGY COMMENT ABNORMAL
[2023-10-17 03:14] LABS: ANISOCYTOSIS MODERATE; MICROCYTOSIS MODERATE; OVALOCYTES FEW; POIKILOCYTOSIS MODERATE; POLYCHROMASIA FEW; TEAR DROP CELLS FEW
[2023-10-17 03:15] LABS: PLATELET ESTIMATE ADEQUATE; PLATELET MORPHOLOGY COMMENT NORMAL
[2023-10-17] MEDS: SODIUM CHLORIDE 0.9% 250ML 250 ML ONE (03:33)
[2023-10-17] MEDS: PHYTONADIONE 10 MG/ML AMP SQ ONE (08:34)
[2023-10-17] MEDS: CALCITRIOL 0.25 MCG CAP PO SCH (08:34)
[2023-10-17] MEDS: LEVOTHYROXINE SODIUM 75 MCG TAB PO SCH (08:34)
[2023-10-17] MEDS: TAMSULOSIN HCL 0.4 MG CAP PO SCH (08:34)
[2023-10-17] MEDS: SERTRALINE HCL 50 MG TAB PO SCH (08:34)
[2023-10-17] MEDS: FOLIC ACID/CYANOCOB/PYRIDOXINE TAB PO SCH (08:34)
[2023-10-17 09:09] LABS: BASOPHILS # (AUTO) 0.1 (0.0-0.1); BASOPHILS % 0.5 % (0.0-1.0); EOSINOPHILS # (AUTO) 0.1 (0.0-0.4); EOSINOPHILS % 0.8 % (0.0-6.0); HEMATOCRIT 23.4 % (34.2-44.1); HEMOGLOBIN 7.3 g/dL (12.0-16.0); LYMPHOCYTES # (AUTO) 1.2 (1.0-3.2); LYMPHOCYTES % 12.1 % (18.0-39.1); MEAN CORPUSCULAR HEMOGLOBIN 29.8 pg (28-32); MEAN CORPUSCULAR HGB CONC 31.2 g/dL (31-35); MEAN CORPUSCULAR VOLUME 95.5 fL (81-99); MONOCYTES # (AUTO) 0.5 (0.2-0.8); MONOCYTES % 5.1 % (4.4-11.3); NEUTROPHILS # (AUTO) 7.8 (2.1-6.9); NEUTROPHILS % 80.8 % (38.7-80.0); PLATELET COUNT 172 x10e3/uL (140-360); RED BLOOD COUNT 2.45 x10e6/uL (3.6-5.1); RED CELL DISTRIBUTION WIDTH 15.7 % (11.7-14.4); WHITE BLOOD COUNT 9.67 x10e3/uL (4.8-10.8)
[2023-10-17 09:10] LABS: INR 1.79; PARTIAL THROMBOPLASTIN TIME 32.3 seconds (23.8-35.5); PROTHROMBIN TIME 21.7 seconds (11.9-14.5)
[2023-10-17 09:29] LABS: ALBUMIN 2.5 g/dL (3.5-5.0); BILIRUBIN,TOTAL 0.5 mg/dL (0.2-1.2); CREATININE, SERUM 4.23 mg/dL (0.57-1.11); TOTAL PROTEIN 5.1 g/dL (6.5-8.1)
[2023-10-17 10:11] LABS: CHOL/HDL RATIO 3.4 (3.0-3.6); MAGNESIUM 1.7 MG/DL (1.3-2.1); PHOSPHORUS 4.6 MG/DL (2.3-4.7)
[2023-10-17 11:24] LABS: THYROID STIMULATING HORMONE 0.67 uIU/mL (0.350-4.940)
[2023-10-17 11:30] LABS: FERRITIN 84.59 ng/mL (4.63-204.00)
[2023-10-17 18:12] LABS: BASOPHILS % 0.4 % (0.0-1.0); EOSINOPHILS # (AUTO) 0.2 (0.0-0.4); EOSINOPHILS % 1.9 % (0.0-6.0); LYMPHOCYTES # (AUTO) 1.3 (1.0-3.2); LYMPHOCYTES % 15.3 % (18.0-39.1); MEAN CORPUSCULAR HEMOGLOBIN 29.6 pg (28-32); MEAN CORPUSCULAR HGB CONC 30.8 g/dL (31-35); MEAN CORPUSCULAR VOLUME 96.3 fL (81-99); MONOCYTES # (AUTO) 0.4 (0.2-0.8); MONOCYTES % 4.6 % (4.4-11.3); NEUTROPHILS # (AUTO) 6.3 (2.1-6.9); NEUTROPHILS % 76.5 % (38.7-80.0); PLATELET COUNT 139 x10e3/uL (140-360); RED BLOOD COUNT 2.16 x10e6/uL (3.6-5.1); RED CELL DISTRIBUTION WIDTH 16.5 % (11.7-14.4); WHITE BLOOD COUNT 8.28 x10e3/uL (4.8-10.8)
[2023-10-17 18:19] LABS: HEMATOCRIT 20.8 % (34.2-44.1); HEMOGLOBIN 6.4 g/dL (12.0-16.0)
[2023-10-17] MEDS: SODIUM CHLORIDE 0.9% 250ML 250 ML IV ONE (19:52)
[2023-10-17] MEDS ORDERED: CITALOPRAM HYDROBROMIDE 20 MG TAB PO SCH (21:00)
[2023-10-18] VITALS (23 sets, daily range): BP systolic 95–117; BP diastolic 44–65; PULSE 25–84; RESP 13–24; TEMP 97.8–98.2; O2SAT 96–100
[2023-10-18 06:45] LABS: BASOPHILS # (AUTO) 0.1 (0.0-0.1); BASOPHILS % 0.6 % (0.0-1.0); EOSINOPHILS # (AUTO) 0.3 (0.0-0.4); EOSINOPHILS % 3.2 % (0.0-6.0); HEMATOCRIT 29.2 % (34.2-44.1); HEMOGLOBIN 8.9 g/dL (12.0-16.0); LYMPHOCYTES # (AUTO) 1.7 (1.0-3.2); LYMPHOCYTES % 21.1 % (18.0-39.1); MEAN CORPUSCULAR HEMOGLOBIN 27.8 pg (28-32); MEAN CORPUSCULAR HGB CONC 30.5 g/dL (31-35); MEAN CORPUSCULAR VOLUME 91.3 fL (81-99); MONOCYTES # (AUTO) 0.5 (0.2-0.8); MONOCYTES % 5.6 % (4.4-11.3); NEUTROPHILS # (AUTO) 5.5 (2.1-6.9); PLATELET COUNT 133 x10e3/uL (140-360); RED CELL DISTRIBUTION WIDTH 19.5 % (11.7-14.4); WHITE BLOOD COUNT 8.04 x10e3/uL (4.8-10.8)
[2023-10-18 07:11] LABS: ANION GAP 13.1 mmol/L (8-16); CALCIUM 7.9 mg/dL (8.4-10.2); CREATININE, SERUM 3.81 mg/dL (0.57-1.11); POTASSIUM 4.1 mmol/L (3.5-5.1)
[2023-10-18 13:10] LABS: BASOPHILS # (AUTO) 0.1 (0.0-0.1); BASOPHILS % 0.7 % (0.0-1.0); EOSINOPHILS # (AUTO) 0.2 (0.0-0.4); EOSINOPHILS % 2.9 % (0.0-6.0); HEMATOCRIT 27.3 % (34.2-44.1); HEMOGLOBIN 8.5 g/dL (12.0-16.0); LYMPHOCYTES # (AUTO) 1.5 (1.0-3.2); LYMPHOCYTES % 19.7 % (18.0-39.1); MEAN CORPUSCULAR HEMOGLOBIN 28.1 pg (28-32); MEAN CORPUSCULAR HGB CONC 31.1 g/dL (31-35); MEAN CORPUSCULAR VOLUME 90.1 fL (81-99); MONOCYTES # (AUTO) 0.4 (0.2-0.8); MONOCYTES % 5.3 % (4.4-11.3); NEUTROPHILS # (AUTO) 5.2 (2.1-6.9); NEUTROPHILS % 69.7 % (38.7-80.0); PLATELET COUNT 104 x10e3/uL (140-360); RED BLOOD COUNT 3.03 x10e6/uL (3.6-5.1); RED CELL DISTRIBUTION WIDTH 19.4 % (11.7-14.4)
[2023-10-18 18:58] LABS: HEMOGLOBIN 8.7 g/dL (12.0-16.0); MEAN CORPUSCULAR HEMOGLOBIN 28.4 pg (28-32); MEAN CORPUSCULAR HGB CONC 31.1 g/dL (31-35); MEAN CORPUSCULAR VOLUME 91.5 fL (81-99); PLATELET COUNT 118 x10e3/uL (140-360); RED BLOOD COUNT 3.06 x10e6/uL (3.6-5.1); RED CELL DISTRIBUTION WIDTH 19.5 % (11.7-14.4); WHITE BLOOD COUNT 8.08 x10e3/uL (4.8-10.8)
[2023-10-18 18:59] LABS: BASOPHILS % 0.5 % (0.0-1.0); EOSINOPHILS # (AUTO) 0.2 (0.0-0.4); LYMPHOCYTES # (AUTO) 4.2 (1.0-3.2); LYMPHOCYTES % 15.3 % (18.0-39.1); MONOCYTES # (AUTO) 0.4 (0.2-0.8); MONOCYTES % 4.5 % (4.4-11.3); NEUTROPHILS # (AUTO) 6.1 (2.1-6.9); NEUTROPHILS % 75.1 % (38.7-80.0)
[2023-10-18] MEDS: HYDROXYZINE HCL 25 MG TAB PO SCH (20:36)
[2023-10-18] MEDS: BISACODYL 5 MG TAB EC PO ONE ×3 (22:53→23:54)
[2023-10-19] VITALS (20 sets, daily range): BP systolic 92–117; BP diastolic 48–67; PULSE 40–92; RESP 14–22; TEMP 97.5–97.7; O2SAT 96–100
[2023-10-19] MEDS: CITRATE OF MAGNESIA 300ML BOTTLE PO ONE ×2 (04:49→06:57)
[2023-10-19 06:11] LABS: BASOPHILS % 0.3 % (0.0-1.0); EOSINOPHILS # (AUTO) 0.3 (0.0-0.4); EOSINOPHILS % 3.6 % (0.0-6.0); HEMATOCRIT 29.3 % (34.2-44.1); LYMPHOCYTES # (AUTO) 1.6 (1.0-3.2); LYMPHOCYTES % 21.4 % (18.0-39.1); MEAN CORPUSCULAR HEMOGLOBIN 28.6 pg (28-32); MEAN CORPUSCULAR HGB CONC 30.7 g/dL (31-35); MONOCYTES # (AUTO) 0.3 (0.2-0.8); MONOCYTES % 4.3 % (4.4-11.3); NEUTROPHILS % 68.7 % (38.7-80.0); PLATELET COUNT 125 x10e3/uL (140-360); RED BLOOD COUNT 3.15 x10e6/uL (3.6-5.1); RED CELL DISTRIBUTION WIDTH 19.5 % (11.7-14.4); WHITE BLOOD COUNT 7.25 x10e3/uL (4.8-10.8)
[2023-10-19 06:34] LABS: ANION GAP 11.1 mmol/L (8-16); CALCIUM 8.3 mg/dL (8.4-10.2); CREATININE, SERUM 3.57 mg/dL (0.57-1.11); POTASSIUM 4.1 mmol/L (3.5-5.1)
[2023-10-19] MEDS ORDERED: GLUCAGON FOR INJ 1 MG VIAL ONE (11:31)
[2023-10-19] MEDS ORDERED: PROPOFOL IV EMULSION 10 MG/ML 20 ML VIAL ONE (11:31)
[2023-10-19 14:04] LABS: BASOPHILS # (AUTO) 0.1 (0.0-0.1); BASOPHILS % 0.5 % (0.0-1.0); EOSINOPHILS # (AUTO) 0.3 (0.0-0.4); EOSINOPHILS % 2.6 % (0.0-6.0); HEMATOCRIT 29.7 % (34.2-44.1); HEMOGLOBIN 9.1 g/dL (12.0-16.0); LYMPHOCYTES # (AUTO) 1.3 (1.0-3.2); LYMPHOCYTES % 12.8 % (18.0-39.1); MEAN CORPUSCULAR HEMOGLOBIN 28.3 pg (28-32); MEAN CORPUSCULAR HGB CONC 30.6 g/dL (31-35); MEAN CORPUSCULAR VOLUME 92.2 fL (81-99); MONOCYTES # (AUTO) 0.4 (0.2-0.8); MONOCYTES % 3.8 % (4.4-11.3); NEUTROPHILS # (AUTO) 7.7 (2.1-6.9); NEUTROPHILS % 78.8 % (38.7-80.0); PLATELET COUNT 132 x10e3/uL (140-360); RED BLOOD COUNT 3.22 x10e6/uL (3.6-5.1); RED CELL DISTRIBUTION WIDTH 19.2 % (11.7-14.4); WHITE BLOOD COUNT 9.76 x10e3/uL (4.8-10.8)
[2023-10-19] MEDS ORDERED: ETOMIDATE 40 MG/ 20ML VIAL IV ONE (16:40)
[2023-10-19] MEDS ORDERED: XARELTO2.5 MG PO (21:11)
[2023-10-20] VITALS (9 sets, daily range): BP systolic 99–120; BP diastolic 47–66; PULSE 56–83; RESP 18–20; TEMP 97.5–97.9; O2SAT 96–100
[2023-10-20 05:39] LABS: BASOPHILS % 0.1 % (0.0-1.0); EOSINOPHILS # (AUTO) 0.3 (0.0-0.4); EOSINOPHILS % 3.2 % (0.0-6.0); HEMATOCRIT 27.8 % (34.2-44.1); HEMOGLOBIN 8.4 g/dL (12.0-16.0); LYMPHOCYTES # (AUTO) 1.4 (1.0-3.2); LYMPHOCYTES % 16.4 % (18.0-39.1); MEAN CORPUSCULAR HEMOGLOBIN 28.5 pg (28-32); MEAN CORPUSCULAR HGB CONC 30.2 g/dL (31-35); MEAN CORPUSCULAR VOLUME 94.2 fL (81-99); MONOCYTES # (AUTO) 0.3 (0.2-0.8); MONOCYTES % 3.9 % (4.4-11.3); NEUTROPHILS # (AUTO) 6.3 (2.1-6.9); NEUTROPHILS % 75.3 % (38.7-80.0); PLATELET COUNT 128 x10e3/uL (140-360); RED BLOOD COUNT 2.95 x10e6/uL (3.6-5.1); RED CELL DISTRIBUTION WIDTH 18.6 % (11.7-14.4); WHITE BLOOD COUNT 8.36 x10e3/uL (4.8-10.8)
[2023-10-20 07:35] LABS: CREATININE, SERUM 3.42 mg/dL (0.57-1.11)
[2023-10-20] MEDS: SODIUM BICARBONATE 8.4% INJ 50 ML SYR IV ONE (17:00)
[2023-10-21] VITALS (10 sets, daily range): BP systolic 100–119; BP diastolic 54–65; PULSE 78–99; RESP 18–19; TEMP 97.5–97.9; O2SAT 95–100
[2023-10-21 05:41] LABS: BASOPHILS % 0.2 % (0.0-1.0); EOSINOPHILS # (AUTO) 0.3 (0.0-0.4); EOSINOPHILS % 3.5 % (0.0-6.0); HEMATOCRIT 28.9 % (34.2-44.1); HEMOGLOBIN 8.8 g/dL (12.0-16.0); LYMPHOCYTES # (AUTO) 1.3 (1.0-3.2); LYMPHOCYTES % 15.9 % (18.0-39.1); MEAN CORPUSCULAR HEMOGLOBIN 28.3 pg (28-32); MEAN CORPUSCULAR HGB CONC 30.4 g/dL (31-35); MEAN CORPUSCULAR VOLUME 92.9 fL (81-99); MONOCYTES # (AUTO) 0.3 (0.2-0.8); MONOCYTES % 3.8 % (4.4-11.3); NEUTROPHILS # (AUTO) 6.1 (2.1-6.9); NEUTROPHILS % 75.5 % (38.7-80.0); PLATELET COUNT 130 x10e3/uL (140-360); RED BLOOD COUNT 3.11 x10e6/uL (3.6-5.1); RED CELL DISTRIBUTION WIDTH 19.1 % (11.7-14.4); WHITE BLOOD COUNT 8.06 x10e3/uL (4.8-10.8)
[2023-10-21 06:01] LABS: ANION GAP 9.8 mmol/L (8-16); CALCIUM 8.1 mg/dL (8.4-10.2); POTASSIUM 3.8 mmol/L (3.5-5.1)
[2023-10-21] MEDS: ALBUTEROL/IPRATROPIUM 3 ML NEB NEB PRN (07:29)
[2023-10-21] MEDS ORDERED: ONDANSETRON HCL 4 MG ORAL DISINTEGRATING TAB PO PRN (14:30)
[2023-10-22] VITALS (11 sets, daily range): BP systolic 92–117; BP diastolic 56–71; PULSE 73–83; RESP 18; TEMP 97.5–98.8; O2SAT 86–100
[2023-10-22 06:38] LABS: BASOPHILS % 0.5 % (0.0-1.0); EOSINOPHILS # (AUTO) 0.3 (0.0-0.4); EOSINOPHILS % 3.8 % (0.0-6.0); HEMOGLOBIN 7.9 g/dL (12.0-16.0); LYMPHOCYTES # (AUTO) 1.6 (1.0-3.2); LYMPHOCYTES % 18.7 % (18.0-39.1); MEAN CORPUSCULAR HEMOGLOBIN 28.3 pg (28-32); MEAN CORPUSCULAR HGB CONC 30.4 g/dL (31-35); MEAN CORPUSCULAR VOLUME 93.2 fL (81-99); MONOCYTES # (AUTO) 0.3 (0.2-0.8); MONOCYTES % 3.6 % (4.4-11.3); NEUTROPHILS # (AUTO) 6.1 (2.1-6.9); NEUTROPHILS % 72.6 % (38.7-80.0); PLATELET COUNT 134 x10e3/uL (140-360); RED BLOOD COUNT 2.79 x10e6/uL (3.6-5.1); RED CELL DISTRIBUTION WIDTH 18.8 % (11.7-14.4); WHITE BLOOD COUNT 8.43 x10e3/uL (4.8-10.8)
[2023-10-22 09:37] LABS: FOLATE 19.4 ng/mL (7.0-15.4)
[2023-10-22 15:51] LABS: HEMATOCRIT 26.1 % (34.2-44.1); HEMOGLOBIN 8.1 g/dL (12.0-16.0)
== END 2023-10-22 17:35 | disposition home or self-care (01) | DRG 377 ==
LOC: ER 15:35 → ERHOLD 17:56 → ICU 23:31 → MED/SURG2 10-19 14:23
PROVIDERS: ADMIT Internal Medicine; ATTEND Internal Medicine
PROC: 30233N1 Transfusion of Nonautologous Red Blood Cells into Peripheral Vein, Percutaneous Approach (ICD-10-PCS; 2023-10-16)
PROC: 06HY33Z Insertion of Infusion Device into Lower Vein, Percutaneous Approach (ICD-10-PCS; 2023-10-16)
PROC: 0DBM8ZZ Excision of Descending Colon, Via Natural or Artificial Opening Endoscopic (ICD-10-PCS; 2023-10-19)
PROC: 0DBN8ZZ Excision of Sigmoid Colon, Via Natural or Artificial Opening Endoscopic (ICD-10-PCS; 2023-10-19)
PROC: 0W3P8ZZ Control Bleeding in Gastrointestinal Tract, Via Natural or Artificial Opening Endoscopic (ICD-10-PCS; 2023-10-19)
PROC: 0DBH8ZZ Excision of Cecum, Via Natural or Artificial Opening Endoscopic (ICD-10-PCS; principal; 2023-10-19 16:40)
PROC: 0DBK8ZZ Excision of Ascending Colon, Via Natural or Artificial Opening Endoscopic (ICD-10-PCS; 2023-10-19 16:40)
DX: K57.31 Diverticulosis of large intestine without perforation or abscess with bleeding (principal); R57.1 Hypovolemic shock; D62 Acute posthemorrhagic anemia; N17.9 Acute kidney failure, unspecified; D68.9 Coagulation defect, unspecified; I50.32 Chronic diastolic (congestive) heart failure; N18.4 Chronic kidney disease, stage 4 (severe); D12.0 Benign neoplasm of cecum; D12.2 Benign neoplasm of ascending colon; D12.4 Benign neoplasm of descending colon; D12.5 Benign neoplasm of sigmoid colon; K64.8 Other hemorrhoids; I48.0 Paroxysmal atrial fibrillation; I25.10 Atherosclerotic heart disease of native coronary artery without angina pectoris; E78.5 Hyperlipidemia, unspecified; M10.9 Gout, unspecified; J44.9 Chronic obstructive pulmonary disease, unspecified; E03.9 Hypothyroidism, unspecified; F41.9 Anxiety disorder, unspecified; F32.A Depression, unspecified; Z79.01 Long term (current) use of anticoagulants; Z79.82 Long term (current) use of aspirin; Z79.02 Long term (current) use of antithrombotics/antiplatelets; Z79.890 Hormone replacement therapy; Z95.5 Presence of coronary angioplasty implant and graft; Z90.49 Acquired absence of other specified parts of digestive tract; Z90.710 Acquired absence of both cervix and uterus; Z88.2 Allergy status to sulfonamides; Z87.891 Personal history of nicotine dependence
CPT/HCPCS: 36415; 45378; 45385; 71045; 80048; 80053; 80061; 82607; 82728; 82746; 83036; 83540; 83735; 84100; 84443; 84466; 85014; 85018; 85025; 85610; 85730; 86850; 86900; 86920; 88305; 93005; 94640; 94760; 94799; 99284; J1610; J2353; J2470; J3410; J3430; J7030; J7050; P9016; Q9967

== ENCOUNTER → 2023-11-15 | Outpatient (REF) | payer MEDICARE, OTHER ==
[~2023-11-15] MED LIST changes: +XARELTO2.5 MG PO
== END ==
LOC: DX 07:28
PROVIDERS: ATTEND Nurse Practitioner
DX: K92.2 Gastrointestinal hemorrhage, unspecified (principal); D62 Acute posthemorrhagic anemia; K92.1 Melena
CPT/HCPCS: 74250

== ENCOUNTER → 2024-04-10 | Outpatient (REF) | payer MEDICARE, OTHER | LOC: RAD 14:50 | PROVIDERS: ATTEND Internal Medicine | DX: Z01.818 Encounter for other preprocedural examination (principal) | CPT/HCPCS: 71046; 93005 ==

== ENCOUNTER 2024-04-15 13:16 | Inpatient (IN) | payer MEDICARE, OTHER ==
[~2024-04-15] VITALS: Ht 165.1 cm; Wt 79.8 kg
[2024-04-15 14:31] LABS: BASOPHILS % 0.3 % (0.0-1.0); EOSINOPHILS % 0.1 % (0.0-6.0); HEMOGLOBIN 6.9 g/dL (12.0-16.0); LYMPHOCYTES % 7.2 % (18.0-39.1); MEAN CORPUSCULAR HEMOGLOBIN 30.7 pg (28-32); MEAN CORPUSCULAR HGB CONC 32.7 g/dL (31-35); MEAN CORPUSCULAR VOLUME 93.8 fL (81-99); MONOCYTES # (AUTO) 0.5 (0.2-0.8); MONOCYTES % 3.5 % (4.4-11.3); NEUTROPHILS # (AUTO) 11.6 (2.1-6.9); NEUTROPHILS % 87.8 % (38.7-80.0); PLATELET COUNT 178 x10e3/uL (140-360); RED BLOOD COUNT 2.25 x10e6/uL (3.6-5.1); RED CELL DISTRIBUTION WIDTH 17.8 % (11.7-14.4); WHITE BLOOD COUNT 13.15 x10e3/uL (4.8-10.8)
[2024-04-15 14:39] LABS: HEMATOCRIT 21.1 % (34.2-44.1)
[2024-04-15 14:54] LABS: INR 1.11; PARTIAL THROMBOPLASTIN TIME 26.2 seconds (23.8-35.5)
[2024-04-15 15:09] LABS: ALBUMIN 3.1 g/dL (3.5-5.0); ALBUMIN/GLOBULIN RATIO 0.7 (0.8-2.0); BILIRUBIN,TOTAL 0.5 mg/dL (0.2-1.2); CALCIUM 9.2 mg/dL (8.4-10.2); CREATININE, SERUM 7.02 mg/dL (0.57-1.11); TOTAL PROTEIN 7.3 g/dL (6.5-8.1)
[2024-04-15 15:31] VITALS: PULSE 82; RESP 18; O2SAT 96
[2024-04-15] MEDS ORDERED: ALBUTEROL/IPRATROPIUM 3 ML NEB NEB PRN (16:00)
[2024-04-15] MEDS ORDERED: SIMETHICONE 80 MG CHEW PO PRN (16:00)
[2024-04-15] MEDS ORDERED: DOCUSATE SODIUM 100 MG CAP PO PRN (16:00)
[2024-04-15] MEDS ORDERED: LIDOCAINE 4% PATCH TP PRN (16:00)
[2024-04-15] MEDS ORDERED: HYDRALAZINE HCL 20 MG/ML VIAL IV PRN (16:00)
[2024-04-15] MEDS ORDERED: DEXTROSE 50% SYRINGE 50 ML IV PRN (16:00)
[2024-04-15] MEDS ORDERED: BENZONATATE 100 MG CAP PO PRN (16:00)
[2024-04-15] MEDS ORDERED: DIPHENHYDRAMINE HCL 25 MG CAP PO PRN (16:00)
[2024-04-15] MEDS ORDERED: ONDANSETRON HCL INJ 2MG/ML 2ML 2 MG/ML VIAL IV PRN (16:00)
[2024-04-15] MEDS: SODIUM BICARBONATE 650 MG TAB PO SCH (17:24)
[2024-04-15] MEDS: SODIUM CHLORIDE 0.9% 250ML 250 ML IV ONE (17:24)
[2024-04-15 19:05] VITALS: PULSE 81; RESP 13; TEMP 97.6
[2024-04-15 19:35] VITALS: PULSE 81; RESP 18; O2SAT 100
[2024-04-15 20:00] VITALS: BP 88/57; PULSE 79; RESP 18; TEMP 97.2; O2SAT 95
[2024-04-15] MEDS ORDERED: MELATONIN 5 MG TABLET PO PRN (21:00)
[2024-04-15 21:35] LABS: % IRON SATURATION 46 % (15-50); IRON 115 ug/dL (50-170); TOTAL IRON BINDING CAPACITY 251 ug/dL (261-478); TRANSFERRIN 179 mg/dL (180-382)
[2024-04-16] VITALS (11 sets, daily range): BP systolic 86–109; BP diastolic 50–84; PULSE 56–89; RESP 14–20; TEMP 97.6–98.3; O2SAT 93–100
[2024-04-16] MEDS: SODIUM BICARBONATE 8.4% INJ 50 ML SYR IV STA (01:21)
[2024-04-16] MEDS: SODIUM CHLORIDE 0.45% 1,000 ML IV ONE (01:46)
[2024-04-16] MEDS: SODIUM BICARBONATE 8.4% 50 ML VIAL IV STA (01:47)
[2024-04-16] MEDS: SERTRALINE HCL 50 MG TAB PO SCH (01:49)
[2024-04-16 05:10] LABS: BASOPHILS # (AUTO) 0.1 (0.0-0.1); BASOPHILS % 0.5 % (0.0-1.0); EOSINOPHILS # (AUTO) 0.1 (0.0-0.4); EOSINOPHILS % 0.6 % (0.0-6.0); HEMATOCRIT 22.2 % (34.2-44.1); LYMPHOCYTES # (AUTO) 1.7 (1.0-3.2); MEAN CORPUSCULAR HEMOGLOBIN 31.5 pg (28-32); MEAN CORPUSCULAR HGB CONC 32.9 g/dL (31-35); MEAN CORPUSCULAR VOLUME 95.7 fL (81-99); MONOCYTES # (AUTO) 0.6 (0.2-0.8); MONOCYTES % 5.6 % (4.4-11.3); NEUTROPHILS # (AUTO) 8.3 (2.1-6.9); NEUTROPHILS % 76.7 % (38.7-80.0); PLATELET COUNT 157 x10e3/uL (140-360); RED BLOOD COUNT 2.32 x10e6/uL (3.6-5.1); RED CELL DISTRIBUTION WIDTH 17.2 % (11.7-14.4); WHITE BLOOD COUNT 10.77 x10e3/uL (4.8-10.8)
[2024-04-16 05:20] LABS: HEMOGLOBIN 7.3 g/dL (12.0-16.0)
[2024-04-16 05:38] LABS: ANION GAP 21.5 mmol/L (8-16); CALCIUM 8.6 mg/dL (8.4-10.2); CARBON DIOXIDE 12 mmol/L (22-29); CHLORIDE 109 mmol/L (98-107); CREATININE, SERUM 6.79 mg/dL (0.57-1.11); EST GLOMERULAR FILTRATION RATE 6 ML/MIN (>=60); GLUCOSE 95 mg/dL (74-118); POTASSIUM 3.5 mmol/L (3.5-5.1); SODIUM 139 mmol/L (136-145)
[2024-04-16 05:46] LABS: BLOOD UREA NITROGEN 126 mg/dL (7-26)
[2024-04-16] MEDS: PANTOPRAZOLE SOD 40 MG TABEC PO SCH (07:30)
[2024-04-16] MEDS ORDERED: SODIUM CHLORIDE 0.9% 500ML 500 ML ONE (12:43)
[2024-04-16] MEDS ORDERED: LIDOCAINE HCL 1% 30ML-PF VIAL ONE (12:43)
[2024-04-16] MEDS ORDERED: MIDAZOLAM HCL 2 MG/2 ML VIAL ONE (13:24)
[2024-04-16] MEDS ORDERED: HEPARIN SOD (PORCINE) 1000 UNIT/ML SDV ONE (13:25)
[2024-04-16] MEDS ORDERED: FENTANYL CITRATE/PF 100MCG/2 ML INJ ONE (13:25)
[2024-04-16] MEDS ORDERED: SODIUM CHLORIDE 0.9% 250ML 250 ML ONE (13:25)
[2024-04-16] MEDS: SODIUM CHLORIDE 0.9% 1000ML 2,000 ML ONE (16:15)
[2024-04-16] MEDS: MANNITOL 25% 12.5GM/50ML 0 ML ONE (16:15)
[2024-04-16] MEDS ORDERED: HEPARIN SOD (PORCINE) 1000 UNIT/ML SDV IV PRN (17:15)
[2024-04-16] MEDS ORDERED: SODIUM CHLORIDE 0.9% 1000ML 2,000 ML IV PRN (17:15)
[2024-04-16] MEDS ORDERED: MANNITOL 25% 12.5GM/50 ML VIAL IV PRN (17:15)
[2024-04-16] MEDS: ALBUMIN 25% 12.5GM 50ML 50 ML IV ONE (17:24)
[2024-04-17] VITALS (9 sets, daily range): BP systolic 85–99; BP diastolic 49–59; PULSE 65–82; RESP 18–20; TEMP 97.7–98.5; O2SAT 93–100
[2024-04-17 05:26] LABS: BASOPHILS % 0.4 % (0.0-1.0); EOSINOPHILS # (AUTO) 0.1 (0.0-0.4); EOSINOPHILS % 1.3 % (0.0-6.0); LYMPHOCYTES # (AUTO) 1.4 (1.0-3.2); LYMPHOCYTES % 18.9 % (18.0-39.1); MEAN CORPUSCULAR HEMOGLOBIN 31.6 pg (28-32); MEAN CORPUSCULAR HGB CONC 32.7 g/dL (31-35); MEAN CORPUSCULAR VOLUME 96.7 fL (81-99); MONOCYTES # (AUTO) 0.5 (0.2-0.8); MONOCYTES % 7.1 % (4.4-11.3); NEUTROPHILS # (AUTO) 5.1 (2.1-6.9); NEUTROPHILS % 71.6 % (38.7-80.0); PLATELET COUNT 139 x10e3/uL (140-360); RED BLOOD COUNT 2.12 x10e6/uL (3.6-5.1); RED CELL DISTRIBUTION WIDTH 17.7 % (11.7-14.4); WHITE BLOOD COUNT 7.15 x10e3/uL (4.8-10.8)
[2024-04-17 05:48] LABS: HEMATOCRIT 20.5 % (34.2-44.1); HEMOGLOBIN 6.7 g/dL (12.0-16.0)
[2024-04-17 06:00] LABS: CREATININE, SERUM 5.24 mg/dL (0.57-1.11)
[2024-04-17] MEDS ORDERED: HEPARIN SOD (PORCINE) 1000 UNIT/ML SDV IV PRN (11:00)
[2024-04-17] MEDS ORDERED: SODIUM CHLORIDE 0.9% 100 ML ONE (14:39)
[2024-04-17] MEDS ORDERED: IOPAMIDOL 370 MG/ML 100 ML INFUS..BTL INJ ONE (14:39)
[2024-04-17] MEDS: SODIUM CHLORIDE 0.9% 1000ML 1,000 ML ONE (15:40)
[2024-04-17] MEDS: SODIUM CHLORIDE 0.9% 250ML 250 ML IV ONE (15:40)
[2024-04-17] MEDS: ALBUMIN 25% 12.5GM 50ML 0 ML IV ONE (15:41)
[2024-04-17] MEDS: HEPARIN SOD (PORCINE) 5,000 UNIT/ML VIAL ONE (15:41)
[2024-04-17] MEDS: SODIUM CHLORIDE 0.9% 250ML 250 ML ONE (15:41)
[2024-04-17] MEDS: ALBUMIN 25% 12.5GM 50ML 50 ML IV ONE (15:43)
[2024-04-17] MEDS: POTASSIUM CHLORIDE 20 MEQ TAB CR PO STA (17:14)
[2024-04-17] MEDS ORDERED: PHYTONADIONE 10 MG/ML AMP IV ONE (20:15)
[2024-04-17] MEDS ORDERED: SODIUM CHLORIDE 0.9% IV ONE (20:45)
[2024-04-17] MEDS ORDERED: PHYTONADIONE IV ONE (20:45)
[2024-04-17] MEDS: PHYTONADIONE 10 MG/ML AMP IV ONE (21:43)
[2024-04-18] VITALS (9 sets, daily range): BP systolic 86–95; BP diastolic 52–64; PULSE 64–85; RESP 18–21; TEMP 97.3–98.6; O2SAT 94–98
[2024-04-18 05:09] LABS: BASOPHILS % 0.6 % (0.0-1.0); EOSINOPHILS # (AUTO) 0.1 (0.0-0.4); EOSINOPHILS % 2.2 % (0.0-6.0); HEMATOCRIT 27.8 % (34.2-44.1); HEMOGLOBIN 9.6 g/dL (12.0-16.0); LYMPHOCYTES # (AUTO) 1.4 (1.0-3.2); LYMPHOCYTES % 21.7 % (18.0-39.1); MEAN CORPUSCULAR HEMOGLOBIN 32.2 pg (28-32); MEAN CORPUSCULAR HGB CONC 34.5 g/dL (31-35); MEAN CORPUSCULAR VOLUME 93.3 fL (81-99); MONOCYTES # (AUTO) 0.6 (0.2-0.8); NEUTROPHILS # (AUTO) 4.1 (2.1-6.9); NEUTROPHILS % 65.2 % (38.7-80.0); PLATELET COUNT 118 x10e3/uL (140-360); RED BLOOD COUNT 2.98 x10e6/uL (3.6-5.1); WHITE BLOOD COUNT 6.31 x10e3/uL (4.8-10.8)
[2024-04-18 05:54] LABS: ANION GAP 14.2 mmol/L (8-16); CALCIUM 8.4 mg/dL (8.4-10.2); CREATININE, SERUM 2.88 mg/dL (0.57-1.11)
[2024-04-18 05:56] LABS: POTASSIUM 3.2 mmol/L (3.5-5.1)
[2024-04-18 06:33] LABS: HEPATITIS B CORE AB TOTAL Negative; HEPATITIS B SURFACE AB QUANT <3.5; HEPATITIS B SURFACE AG (P) Negative
[2024-04-18] MEDS: SODIUM CHLORIDE 0.9% 100 ML ONE (08:30)
[2024-04-18] MEDS: ALBUMIN 25% 12.5GM 50ML 100 ML IV ONE (09:19)
[2024-04-18] MEDS: HEPARIN SOD (PORCINE) 1000 UNIT/ML SDV ONE (12:06)
[2024-04-18] MEDS: ACETAMINOPHEN 325 MG TAB PO PRN (12:21)
[2024-04-18] MEDS ORDERED: DIAZEPAM 5 MG TAB PO PRN (15:45)
[2024-04-18] MEDS: NYSTATIN 15 GM POWDER UD BTL TOP SCH (16:44)
[2024-04-18] MEDS: POTASSIUM CHLORIDE 20 MEQ TAB CR PO ONE (17:02)
[2024-04-19] VITALS (9 sets, daily range): BP systolic 85–124; BP diastolic 50–97; PULSE 64–74; RESP 18–20; TEMP 96.7–97.8; O2SAT 95–99
[2024-04-19 06:44] LABS: BASOPHILS % 0.5 % (0.0-1.0); EOSINOPHILS # (AUTO) 0.2 (0.0-0.4); EOSINOPHILS % 2.5 % (0.0-6.0); HEMATOCRIT 31.9 % (34.2-44.1); HEMOGLOBIN 10.5 g/dL (12.0-16.0); LYMPHOCYTES # (AUTO) 1.6 (1.0-3.2); LYMPHOCYTES % 25.7 % (18.0-39.1); MEAN CORPUSCULAR HEMOGLOBIN 32.3 pg (28-32); MEAN CORPUSCULAR HGB CONC 32.9 g/dL (31-35); MEAN CORPUSCULAR VOLUME 98.2 fL (81-99); MONOCYTES # (AUTO) 0.6 (0.2-0.8); MONOCYTES % 9.5 % (4.4-11.3); NEUTROPHILS # (AUTO) 3.7 (2.1-6.9); NEUTROPHILS % 60.3 % (38.7-80.0); PLATELET COUNT 113 x10e3/uL (140-360); RED BLOOD COUNT 3.25 x10e6/uL (3.6-5.1); RED CELL DISTRIBUTION WIDTH 17.7 % (11.7-14.4)
[2024-04-19 07:15] LABS: ANION GAP 15.9 mmol/L (8-16); CALCIUM 8.4 mg/dL (8.4-10.2); CREATININE, SERUM 2.17 mg/dL (0.57-1.11); POTASSIUM 3.9 mmol/L (3.5-5.1)
[2024-04-20] VITALS (10 sets, daily range): BP systolic 90–107; BP diastolic 54–66; PULSE 61–78; RESP 16–18; TEMP 97.7–98.2; O2SAT 95–100
[2024-04-21 04:00] VITALS: BP 103/50; PULSE 65; RESP 18; TEMP 97.7; O2SAT 98
[2024-04-21 05:08] LABS: HEMATOCRIT 30.1 % (34.2-44.1); HEMOGLOBIN 9.6 g/dL (12.0-16.0)
[2024-04-21 05:25] LABS: ANION GAP 13.4 mmol/L (8-16); CALCIUM 8.3 mg/dL (8.4-10.2); CREATININE, SERUM 2.88 mg/dL (0.57-1.11)
[2024-04-21 05:28] LABS: POTASSIUM 3.4 mmol/L (3.5-5.1)
[2024-04-21 05:47] LABS: THYROID STIMULATING HORMONE 9.116 uIU/mL (0.350-4.940)
[2024-04-21 07:43] VITALS: BP 101/56; PULSE 58; RESP 17; TEMP 97.9; O2SAT 97
[2024-04-21 09:00] VITALS: BP 101/56; PULSE 58; RESP 17; TEMP 97.9; O2SAT 97
[2024-04-21 10:12] VITALS: PULSE 60; RESP 18; O2SAT 97
[2024-04-21 11:21] VITALS: BP 105/64; PULSE 75; RESP 18; TEMP 98.1; O2SAT 98
[2024-04-21] MEDS ORDERED: PANTOPRAZOLE SO40 MG PO (15:36)
[2024-04-21 15:50] VITALS: BP 101/57; PULSE 65; RESP 21; TEMP 97.6; O2SAT 97
[2024-04-21] MEDS ORDERED: ASPIRIN EC81 MG PO (15:59)
[2024-04-21] MEDS: POTASSIUM CHLORIDE 20 MEQ TAB CR PO ONE (16:30)
[2024-04-22] MEDS ORDERED: LEVOTHYROXINE SODIUM 75 MCG TAB PO SCH (06:00)
== END 2024-04-21 18:27 | disposition home or self-care (01) | DRG 673 ==
LOC: ER 13:57 → ERHOLD 15:20 → MED/SURG 19:55
PROVIDERS: ADMIT Internal Medicine; ATTEND Internal Medicine
PROC: 30233N1 Transfusion of Nonautologous Red Blood Cells into Peripheral Vein, Percutaneous Approach (ICD-10-PCS; 2024-04-15)
PROC: 02H633Z Insertion of Infusion Device into Right Atrium, Percutaneous Approach (ICD-10-PCS; principal; 2024-04-16)
PROC: 0JH63XZ Insertion of Tunneled Vascular Access Device into Chest Subcutaneous Tissue and Fascia, Percutaneous Approach (ICD-10-PCS; 2024-04-16)
PROC: 5A1D70Z Performance of Urinary Filtration, Intermittent, Less than 6 Hours Per Day (ICD-10-PCS; 2024-04-16)
PROC: 30233R1 Transfusion of Nonautologous Platelets into Peripheral Vein, Percutaneous Approach (ICD-10-PCS; 2024-04-18)
DX: I12.0 Hypertensive chronic kidney disease with stage 5 chronic kidney disease or end stage renal disease (principal); K57.31 Diverticulosis of large intestine without perforation or abscess with bleeding; E87.20 Acidosis, unspecified; D62 Acute posthemorrhagic anemia; N18.6 End stage renal disease; D63.1 Anemia in chronic kidney disease; Z99.2 Dependence on renal dialysis; I95.9 Hypotension, unspecified; E87.6 Hypokalemia; F41.9 Anxiety disorder, unspecified; F32.A Depression, unspecified; I25.10 Atherosclerotic heart disease of native coronary artery without angina pectoris; I48.0 Paroxysmal atrial fibrillation; E03.9 Hypothyroidism, unspecified; E78.5 Hyperlipidemia, unspecified; R53.81 Other malaise; M10.9 Gout, unspecified; K64.8 Other hemorrhoids; R79.89 Other specified abnormal findings of blood chemistry; R26.2 Difficulty in walking, not elsewhere classified; Z91.81 History of falling; Z79.82 Long term (current) use of aspirin; Z95.828 Presence of other vascular implants and grafts; Z79.890 Hormone replacement therapy; Z90.49 Acquired absence of other specified parts of digestive tract; Z90.710 Acquired absence of both cervix and uterus; Z95.5 Presence of coronary angioplasty implant and graft; Z88.2 Allergy status to sulfonamides
CPT/HCPCS: 36415; 36558; 70450; 71045; 73521; 74174; 74470; 76937; 77001; 80048; 80053; 82533; 82607; 82746; 82948; 83540; 84443; 84466; 85014; 85018; 85025; 85045; 85610; 85730; 86704; 86706; 86850; 86900; 86920; 87340; 90962; 94799; 99152; 99153; 99252; 99284; J0690; J1644; J2003; J2150; J2250; J3430; J7030; J7040; J7050; P9016; P9034; Q9967

== ENCOUNTER 2024-05-27 14:20 | Emergency (ER) | payer MEDICARE, OTHER ==
[~2024-05-27] VITALS: Ht 162.6 cm; Wt 78.9 kg
[~2024-05-27 14:20] MED LIST changes: +ASPIRIN EC81 MG PO; +PANTOPRAZOLE SO40 MG PO
[2024-05-27 14:35] VITALS: TEMP 97.9
[2024-05-27 15:30] VITALS: PULSE 77; RESP 18; O2SAT 98
[2024-05-27] MEDS ORDERED: DOXYCYCLINE HY100 MG PO (16:14)
== END 2024-05-27 16:29 | disposition home or self-care (01) ==
LOC: ER 14:29
DX: M79.672 Pain in left foot (principal); L03.116 Cellulitis of left lower limb; R23.3 Spontaneous ecchymoses; N18.9 Chronic kidney disease, unspecified; E78.5 Hyperlipidemia, unspecified; I48.91 Unspecified atrial fibrillation; E03.9 Hypothyroidism, unspecified; D64.9 Anemia, unspecified; F32.A Depression, unspecified; M10.9 Gout, unspecified; Z95.5 Presence of coronary angioplasty implant and graft
CPT/HCPCS: 93971; 99283

== ENCOUNTER → 2024-08-04 | Outpatient (REF) | payer MEDICARE, OTHER ==
[~2024-08-04] MED LIST changes: +DOXYCYCLINE HY100 MG PO
== END ==
LOC: CT 15:54
PROVIDERS: ATTEND Nurse Practitioner Family
DX: J90 Pleural effusion, not elsewhere classified (principal); R91.8 Other nonspecific abnormal finding of lung field; J98.4 Other disorders of lung
CPT/HCPCS: 71250